=== PATIENT | female | born 1935 | race Caucasian/White ===

== ENCOUNTER 2024-01-06 14:14 | Emergency (ER) | payer OTHER, SELFPAY ==
[2024-01-06 14:19] VITALS: BP 160/52
[2024-01-06 14:21] VITALS: BP 160/52
[2024-01-06 14:29] VITALS: BMI 27.4
[2024-01-06 14:47] LABS: % Basophils 0.4 % (0-2); % Eosinophils 1.1 % (0-6); % Immature Granulocytes 0.4 % (0-0.5); % Monocytes 11.7 % (1.7-9.3); % Neutrophils 70.4 % (42.2-75.2); Absolute Eosinophils 0.1 10^3/uL (0-0.7); Absolute Lymphocytes 1.2 10^3/uL (1.2-3.4); Absolute Monocytes 0.9 10^3/uL (0.1-0.6); Absolute Neutrophils 5.1 10^3/uL (1.4-6.5); Hematocrit 37.6 % (37.0-47.0); Hemoglobin 12.5 g/dL (12.0-16.0); Mean Corp Hgb Conc. 33.2 g/dL (33.0-37.0); Mean Corpuscular Hgb 33.4 pg (27.0-31.0); Mean Corpuscular Volume 100.5 fL (81.0-99.0); Mean Platelet Volume 11.5 fL (7.4-10.4); Nucleated Red Blood Cells % 0 %; Platelet Count 184 10^3/uL (130-400); Red Blood Cell Count 3.74 10^6/uL (4.20-5.40); Red Cell Dist. Width 14.6 % (11.5-14.5); White Blood Cell Count 7.3 10^3/uL (4.8-10.8)
[2024-01-06 14:54] LABS: ALT (SGPT) 13 U/L (0-35); AST (SGOT) 22 U/L (14-36); Albumin 3.7 g/dl (3.5-5.0); Alkaline Phosphatase 94 U/L (38-126); Blood Urea Nitrogen 17 mg/dl (7-17); Calcium 8.1 mg/dl (8.4-10.2); Carbon Dioxide 24 mmol/L (22-30); Chloride 102 mmol/L (98-107); Estimated Creatinine Clearance 44 ml/min; Glucose 147 mg/dl (70-99); Potassium 4.2 mmol/L (3.5-5.1); Sodium 133 mmol/L (135-145); Total Bilirubin 0.7 mg/dl (0.2-1.3); Total Protein 5.7 g/dl (6.3-8.2); eGFR > 60.00
[2024-01-06 15:00] VITALS: BP 135/45
[2024-01-06 15:05] LABS: Troponin I < 0.012 ng/ml
[2024-01-06 16:00] VITALS: BP 123/69
[2024-01-06 17:05] VITALS: BP 139/60; BP 140/67; BP 142/53; PULSE 75; PULSE 78; PULSE 84
--- NOTE | 2024-01-06 17:14 | ED.GENMED ---
History of Present Illness
General
Chief Complaint: Fainting Sensation
Source: patient
Exam Limitations: none
Time Seen by Provider: 01/06/24 14:59
History of Present Illness
History of Present Illness:
88-year-old female presents with near syncopal episode. She was walking along with her who was wheeling in his wheelchair at his shelter. She started to feel lightheaded and had to sit herself down. She was also sweaty. There is no
associated chest pain. She states since being here she has felt better. She denies nausea or vomiting. No shortness of breath. No unilateral arm numbness or weakness.
Phy Exam
Physical Exam
Physical Exam:
General: Well-appearing female no acute respiratory distress
HEENT: Normocephalic atraumatic
Heart: Regular rate and rhythm no murmurs
Lungs: Clear no wheeze or rales
Extremities: No cyanosis or edema
Course
Orders/Labs/Results
Orders:
Orders
01/06/24 14:17
Electrocardiogram (*1) Urgent
Reason for Study: Chest Pain
Cardiac Monitoring- Treatment ONCE
EKG- Treatment ONCE
IV Insert/Care/Rem.- Treatment PRN
01/06/24 14:27
Complete Blood Count/With Diff Urgent
Comprehensive Metabolic Panel Urgent
Troponin I Urgent
01/06/24 15:49
Orthostatic VS- Treatment ONCE
Abnormal Lab Results
01/06/24
14:27
RBC 3.74 L 10^6/uL
(4.20-5.40)
MCV 100.5 H fL
(81.0-99.0)
MCH 33.4 H pg
(27.0-31.0)
RDW 14.6 H %
(11.5-14.5)
MPV 11.5 H fL
(7.4-10.4)
Absolute Monos (auto) 0.9 H 10^3/uL
(0.1-0.6)
Lymphocytes % 16.0 L %
(20.5-51.1)
Monocytes % 11.7 H %
(1.7-9.3)
Sodium 133 L mmol/L
(135-145)
Glucose 147 H mg/dl
(70-99)
Calcium 8.1 L mg/dl
(8.4-10.2)
Total Protein 5.7 L g/dl
(6.3-8.2)
01/06/24 14:27
01/06/24 14:27
Vital Signs
Initial and Last Documented VS:
Initial Vital Signs
Temp Pulse Resp BP Pulse Ox
97.6 F 76 18 160/52 95
01/06/24 14:19 01/06/24 14:19 01/06/24 14:19 01/06/24 14:19 01/06/24 14:19
Last Documented Vital Signs
Temp Pulse Resp BP Pulse Ox
97.6 F 68 14 123/69 94
01/06/24 14:19 01/06/24 16:30 01/06/24 16:30 01/06/24 16:00 01/06/24 16:30
MDM/Problems Addressed
Differential Diagnosis Includes:
Patient presents after COVID of weakness. Syncope. Consider electrolyte abnormality or arrhythmia or anemia
KG shows sinus rhythm. No arrhythmias noted on monitor. Labs reviewed without acute finding. She was hydrated here. She is ambulated to the bathroom and feels well. I suspect possible presyncopal episode due to vasovagal event. No indication
for admission will discharge home with
*Critical Care Note
Total Time (30-74mins, 75-104mins- exclusive of procedures): Not Applicable
ED Attending Note
-
Portions of this chart may have been created with voice recognition software.� Occasional wrong word or��sound alike� substitutions may have occurred due to the inherent limitations of voice recognition software.
Discharge Plan
Departure
Patient Disposition: Home (Routine Discharge)
Date of Disposition: 01/06/24
Time of Disposition: 17:16
Patient with high blood pressure during this ER visit?: No
Discharge Problem:
Lightheadedness
Instructions: Near Fainting (DC)
Referrals:
Eliseo Lund MD [Family Provider] -
Activity Restrictions/Additional Instructions:
Rest. Stay hydrated. Return here for worsening symptoms otherwise follow-up with your doctor
Interventions
Interventions:
*Risk Screen - Suicide Last Done: 01/06/24 14:35
*Neglect/Abuse Screening Last Done: 01/06/24 14:35
ED- Cardiac Assessment Last Done: 01/06/24 14:33
ED- Neurological Assessment Last Done: 01/06/24 14:33
Discharge Date and Time
Print Language: LATVIAN
== END 2024-01-06 17:40 | disposition home or self-care (01) ==
LOC: EMR 14:14
PROVIDERS: Student in an Organized Health Care Education/Training Program; EMERGENCY PHYSICIAN Emergency Medicine; FAMILY PHYSICIAN Internal Medicine
DX: R42 Dizziness and giddiness (principal)
CPT/HCPCS: 99284; 80053; 84484; 85025; 93005